=== PATIENT | male | born 1935 | race Caucasian/White ===

== ENCOUNTER 2017-07-26 23:43 | Emergency (ER) | payer OTHER ==
--- NOTE | 2017-07-26 23:53 | ED CRITICAL CARE ---
History of Present Illness General Chief Complaint: Cardiopulmonary Resuscitation Stated Complaint: CPR Source: EMS Exam Limitations: clinical condition Vital Signs & Intake/Output Vital Signs & Intake/Output ED Intake and Output 07/27 0000 07/26 1200 Intake Total 0 Output Total Balance 0 Intake, Oral 0 Allergies Coded Allergies: UNOBTAINABLE (07/26/17) Triage Note: PT BIBA FROM [facility] AFTER BEING FOUND LAYING IN THE PROMNE POSTION ON THE FLOOR, LAST SEEN ALIVE AT 2230, EMS FOUND PT PULSELESS AT 2254, AND IN PEA. EMS ATTEMPT TO INTUBATE 3 TIMES WITHOUT SUCCESS. PT HAS #20 TO LEFT AC. PT WAS GIVEN 6 EPI'S AND COMPRESSION SUSTAINED ON ARRIVAL. PT BEING BAGGED ON ARRIVAL. PT HAS A HX OF MULTIPLE MYELOMA, CHF. PT HAS +3 EDEMA TO BILATERAL LOWER EXT. PT ARRIVES IN [place]. DR DURAN CALLS TIME OF AT 2349. Triage Nurses Notes Reviewed? yes Onset: Abrupt Duration: minute(s): Timing: single episode today Injury Environment: home Severity: severe HPI: 81 yo gentleman, h/o multiple myeloma, chf, from independent living, presents in PEA arrest. Per the medics, he was last seen at 22:30, and was found prone next to his bed shortly thereafter. 911 called. CPR began at approximatley 22:54. Pt is PEA rhythm. Epi x 6 given in the field, without response. Intubation attempt x 3, unsuccessful. Past History Travel History Traveled to [place] past 21 day No Medical History Any Pertinent Medical History? see below for history Cardiovascular: CHF Cancer(s): MULTIPLE MYELOMA Surgical History Surgical History: none Psychosocial History What is your primary language Bengali Tobacco Use: Never used Family History Hx Contributory? No Review of Systems Review of Systems Constitutional: Reports: no symptoms. Eyes: Reports: no symptoms. Ears, Nose, Throat, Mouth: Reports: no symptoms. Respiratory: Reports: no symptoms. Cardiovascular: Reports: no symptoms. Gastrointestinal/Abdominal: Reports: no symptoms. Genitourinary: Reports: no symptoms. Musculoskeletal: Reports: no symptoms. Skin: Reports: no symptoms. Neurological/Psychological: Reports: no symptoms. All Other Systems: Reviewed and Negative Physical Exam Physical Exam General Appearance: unresponsive, pallor Head: abrasion on forehead 3x 3cm approx Eyes: Bilateral: other (fixed/dilated/unresponsive). Ears, Nose, Throat, Mouth: cyanosis perioral Neck: normal inspection, supple Respiratory: symmetric breath sounds bilterally with BMV, no spontaneous respirations Cardiovascular: no pulse, no heart sounds Gastrointestinal: soft, no bowel sounds Neurologic/Psych: unresponsive, no response to painful stimuli, no corneal reflexes Core Measures ACS in differential dx? No CVA/TIA Diagnosis No Sepsis Present: No Sepsis Focused Exam Completed? No Progress Differential Diagnoses I considered the following diagnoses in my evaluation of the patient: cardiac arrest due to multiple myeloma vs other. Plan of Care: pt given epi x 6 in the field, asystole on 2 leads in the ED after 55 minutes of "code time" , approx 1 hour 20 minutes since he was last seen. time of 23:49 Initial ED EKG: none Rhythm Strip: asystole on two leads Departure Departure Disposition: Condition: Stable Clinical Impression Primary Impression: Cardiac arrest Secondary Impressions: CHF (congestive heart failure), Multiple myeloma Departure Forms: General Discharge Information Critical Care Note Critical Care Note Critical Care Time: 30-74 min
== END 2017-07-26 23:49 | disposition expired ==
LOC: ERH 23:43
DX: I46.9 Cardiac arrest, cause unspecified (principal); I50.9 Heart failure, unspecified; C90.00 Multiple myeloma not having achieved remission
CPT/HCPCS: 99291